=== PATIENT | female | born 1990 | race African-American/Black ===

== ENCOUNTER 2018-08-05 23:03 | Inpatient (IN) ==
[2018-08-06] MEDS ORDERED: ONDANSETRON 4 MG/2 ML VIAL ONE ×2 (02:30→04:43)
[2018-08-06 02:36] LABS: Basophils % 0.1 % (0.0-0.8); Eosinophils % 0.1 % (0.00-10.9); Hematocrit 40.1 VOL% (35.7-47.0); Hemoglobin 13.5 GM/DL (12.0-16.0); Immature Granulocytes % 0.3 %; Immature Granulocytes Absolute 0.04 #; Lymphocytes # 0.9 10*3/uL (1.4-4.0); Lymphocytes % 6.3 % (21.3-54.2); Mean Corpuscular HGB Conc 33.7 GM/DL (32-36); Mean Corpuscular Hemoglobin 28 PG (27-34); Mean Corpuscular Volume 81.8 FL (87-102); Mean Platelet Volume 10.7 FL (9.6-12.0); Monocytes # 0.5 10*3/uL (0.11-0.8); Monocytes % 3.6 % (1.7-12.7); Neutrophils # 12.2 10*3/uL (1.4-7.4); Neutrophils % 89.6 % (38.7-73.9); Platelet Count 256 T/CUMM (130-400); Red Cell Distribution Width 13.3 % (9.3-17.3); White Blood Count 13.6 T/CUMM (4-12)
[2018-08-06 02:44] LABS: PT Patient Result 10.4 SECS; Partial Thromboplastin Time 24.4 SECS (0-40)
[2018-08-06 03:03] LABS: Albumin 3.4 G/DL (3.4-5.0); Calcium 8.8 MG/DL (8.5-10.1); Osmolality,Calculated 285.1 MOS/KG (273-304); Potassium 4.1 MMOL/L (3.5-5.1); Total Protein 8.2 G/DL (6.4-8.3)
[2018-08-06 03:45] LABS: Apearance,Urine Slightly Hazy (Clear); Bacteria,Urine Occasional /HPF (Few); Bilirubin,Urine Negative (Negative); Blood, Urine Large mg/dL (Negative); Glucose,Urine (UA) Negative (Negative); Hyaline Casts,Urine 3 /LPF (0-3); Ketones,Urine Negative (Negative); Mucus,Urine Occasional /LPF (Occasional); Nitrite,Urine Negative (Negative); Protein,Urine 30 MG/DL; RBC,Urine 10 /HPF (0-4); Squamous Epithelial Cell,Urine Occasional /HPF (0-10); Urine Specific Gravity 1.011 (1.001-1.035); WBC,Urine 9 /HPF (0-6)
[2018-08-06 03:46] LABS: Urine Color Amber (Yellow)
[2018-08-06] MEDS ORDERED: MORPHINE 4 MG/1 ML VIAL IV STA (04:49)
[2018-08-06] MEDS ORDERED: MORPHINE 4 MG/1 ML VIAL ONE (04:50)
[2018-08-06] MEDS ORDERED: SODIUM CHLORIDE 0.9% 1,000 ML IV STA ×2 (05:19→05:20)
[2018-08-06] MEDS ORDERED: ACETAMINOPHEN 325 MG TABLET PO PRN (05:33)
[2018-08-06] MEDS ORDERED: NICOTINE 21 MG/24 HR PATCH TRANSDERM PRN (05:33)
[2018-08-06] MEDS ORDERED: PROMETHAZINE 25 MG/1 ML VIAL IM PRN (05:33)
[2018-08-06] MEDS ORDERED: MORPHINE 4 MG/1 ML VIAL IV PRN ×2 (05:33→08:32)
[2018-08-06] MEDS ORDERED: diphenhydrAMINE CAP 25 MG CAPSULE PO PRN (05:33)
[2018-08-06 06:09] LABS: Risk Ratio 5.06; VLDL CHOLESTEROL 11.6 MG/DL
[2018-08-06 06:17] LABS: Hepatitis A Ab IgM Quant < 0.02 Index; Hepatitis A Ab IgM Result Negative (Negative); Hepatitis B Core IgM Quant 0.14 Index; Hepatitis B Core IgM Result Negative (Negative); Hepatitis B Surface Ag Quant < 0.10 Index; Hepatitis B Surface Ag Result Negative (Negative); Hepatitis C Virus Ab Quant 0.13 Index; Hepatitis C Virus Ab Result Negative (Negative)
[2018-08-06] MEDS ORDERED: HYDROmorphone 2 MG/1 ML VIAL IV PRN ×3 (07:03→08:32)
[2018-08-06] MEDS ORDERED: ONDANSETRON 4 MG/2 ML VIAL IV ONE (07:58)
[2018-08-06] MEDS ORDERED: PROMETHAZINE 25 MG/1 ML VIAL IV SCH (08:30)
[2018-08-06] MEDS: HEPARIN 5,000 UNIT/1 ML VIAL SUBCUT SCH ×2 (09:14→17:16)
[2018-08-06] MEDS: PANTOPRAZOLE 40 MG VIAL IV SCH ×2 (09:14→20:46)
[2018-08-06] MEDS: cefTRIAXone 1,000 MG in SYRINGE 1 EACH IV SCH (09:19)
[2018-08-06] MEDS ORDERED: PROMETHAZINE INJ 25 MG in SODIUM CHLORIDE 0.9% 50 ML IV SCH (10:00)
[2018-08-06] MEDS: SODIUM CHLORIDE 0.9% 1,000 ML IV SCH ×2 (11:35→15:55)
[2018-08-06] MEDS: ONDANSETRON 4 MG/2 ML VIAL IV PRN ×3 (12:37→22:45)
[2018-08-06 15:29] LABS: Barbiturates Screen,Urine Negative (Negative); Benzodiazepines Screen,Urine Negative (Negative); Cannabinoid Screen,Urine Negative (Negative); Opiate Screen,Urine Positive (Negative); Phencyclidine Screen,Urine Negative (Negative)
[2018-08-06] MEDS ORDERED: LACTATED RINGERS 2,000 ML IV ONE (15:33)
[2018-08-06] MEDS: HYDROmorphone 2 MG/1 ML VIAL IV PRN ×2 (16:32→22:45)
[2018-08-06] MEDS: LACTATED RINGERS 1,000 ML IV SCH ×2 (17:46→22:01)
[2018-08-06 17:48] LABS: Apearance,Urine CLEAR (Clear); Bilirubin,Urine Negative (Negative); Blood, Urine Small mg/dL (Negative); Glucose,Urine (UA) Negative (Negative); Ketones,Urine 5 mg/dL (Negative); Mucus,Urine Occasional /LPF (Occasional); Nitrite,Urine Negative (Negative); Protein,Urine Negative; RBC,Urine 1 /HPF (0-4); Squamous Epithelial Cell,Urine Occasional /HPF (0-10); Urine Color Yellow (Yellow); Urine Specific Gravity 1.012 (1.001-1.035); Urine Urobilinogen < 2.0 EU/DL (0.2-1.0); WBC,Urine 4 /HPF (0-6)
[2018-08-07] MEDS: HEPARIN 5,000 UNIT/1 ML VIAL SUBCUT SCH ×3 (00:51→19:45)
[2018-08-07] MEDS: LACTATED RINGERS 1,000 ML IV SCH ×7 (02:49→23:19)
[2018-08-07] MEDS: ONDANSETRON 4 MG/2 ML VIAL IV PRN ×2 (03:13→14:26)
[2018-08-07] MEDS: HYDROmorphone 2 MG/1 ML VIAL IV PRN ×5 (03:17→22:19)
[2018-08-07 04:24] LABS: Basophils % 0.1 % (0.0-0.8); Hematocrit 40.6 VOL% (35.7-47.0); Hemoglobin 13.1 GM/DL (12.0-16.0); Immature Granulocytes % 0.6 %; Immature Granulocytes Absolute 0.13 #; Lymphocytes # 0.6 10*3/uL (1.4-4.0); Lymphocytes % 2.5 % (21.3-54.2); Mean Corpuscular HGB Conc 32.3 GM/DL (32-36); Mean Corpuscular Hemoglobin 27 PG (27-34); Mean Corpuscular Volume 82.5 FL (87-102); Mean Platelet Volume 11.1 FL (9.6-12.0); Monocytes # 1.2 10*3/uL (0.11-0.8); Monocytes % 4.9 % (1.7-12.7); Neutrophils # 21.6 10*3/uL (1.4-7.4); Neutrophils % 91.9 % (38.7-73.9); Platelet Count 249 T/CUMM (130-400); Red Blood Count 4.92 MC/CUMM (3.8-5.5); Red Cell Distribution Width 13.6 % (9.3-17.3); White Blood Count 23.5 T/CUMM (4-12)
[2018-08-07 04:43] LABS: Ferritin 66.2 ng/ml (8-252)
[2018-08-07 04:45] LABS: Albumin 2.6 G/DL (3.4-5.0); Bilirubin,Total 0.6 MG/DL (0.2-1.0); Calcium 7.7 MG/DL (8.5-10.1); Osmolality,Calculated 285.8 MOS/KG (273-304); Potassium 3.1 MMOL/L (3.5-5.1); Total Protein 6.9 G/DL (6.4-8.3)
[2018-08-07 05:43] LABS: Band Neutrophils 2 % (0-10); Lymphocytes 2 % (20-55); Platelet Estimate Normal; Segmented Neutrophils 93 % (50-85); Total Cells Counted 100
[2018-08-07] MEDS: PANTOPRAZOLE 40 MG VIAL IV SCH (09:45)
[2018-08-07] MEDS: cefTRIAXone 1,000 MG in SYRINGE 1 EACH IV SCH (09:49)
[2018-08-07] MEDS: POLYETHYLENE GLYCOL POWDER 17 GM PACK PO SCH ×2 (09:55→09:57)
[2018-08-07] MEDS ORDERED: cefOXitin 2,000 MG in SYRINGE 1 EACH IV ONE (10:53)
[2018-08-07] MEDS: POTASSIUM CHLORIDE 20 MEQ TABLET PO PRN ×4 (13:37→22:55)
[2018-08-07] MEDS: NYSTATIN POWDER 15 GM BOTTLE TOP SCH ×2 (17:55→20:18)
[2018-08-07] MEDS: hydrALAZINE 20 MG/1 ML VIAL IV PRN (20:30)
[2018-08-08] MEDS: HEPARIN 5,000 UNIT/1 ML VIAL SUBCUT SCH ×3 (00:40→16:19)
[2018-08-08] MEDS ORDERED: SODIUM CHLORIDE 0.9% 500 ML IV ONE (02:25)
[2018-08-08] MEDS: LACTATED RINGERS 1,000 ML IV SCH ×6 (03:42→22:53)
[2018-08-08 05:39] LABS: Basophils % 0.1 % (0.0-0.8); Hematocrit 38.1 VOL% (35.7-47.0); Hemoglobin 12.6 GM/DL (12.0-16.0); Immature Granulocytes % 0.9 %; Immature Granulocytes Absolute 0.23 #; Lymphocytes # 0.7 10*3/uL (1.4-4.0); Lymphocytes % 2.8 % (21.3-54.2); Mean Corpuscular HGB Conc 33.1 GM/DL (32-36); Mean Corpuscular Hemoglobin 27 PG (27-34); Mean Corpuscular Volume 81.2 FL (87-102); Mean Platelet Volume 11.1 FL (9.6-12.0); Monocytes # 1.4 10*3/uL (0.11-0.8); Monocytes % 5.1 % (1.7-12.7); Neutrophils # 24.5 10*3/uL (1.4-7.4); Neutrophils % 91.1 % (38.7-73.9); Platelet Count 223 T/CUMM (130-400); Red Blood Count 4.69 MC/CUMM (3.8-5.5); Red Cell Distribution Width 13.8 % (9.3-17.3); White Blood Count 26.9 T/CUMM (4-12)
[2018-08-08 06:04] LABS: Band Neutrophils 12 % (0-10); Lymphocytes 4 % (20-55); Platelet Estimate Normal; Segmented Neutrophils 83 % (50-85); Total Cells Counted 100
[2018-08-08 06:12] LABS: Albumin 2.2 G/DL (3.4-5.0); Bilirubin,Total 1.1 MG/DL (0.2-1.0); Calcium 7.5 MG/DL (8.5-10.1); Osmolality,Calculated 270.8 MOS/KG (273-304); Potassium 3.2 MMOL/L (3.5-5.1); Total Protein 6.4 G/DL (6.4-8.3)
[2018-08-08] MEDS ORDERED: LIDOCAINE 1%/EPI INJ 20 ML VIAL ONE (06:27)
[2018-08-08] MEDS ORDERED: TISSUE ADHESIVE 1 EACH APPLICATOR TOP ONE (06:27)
[2018-08-08] MEDS: HYDROmorphone 2 MG/1 ML VIAL IV PRN ×2 (06:53→20:12)
[2018-08-08] MEDS ORDERED: cefOXitin 2,000 MG in SYRINGE 1 EACH IV ONE (07:00)
[2018-08-08] MEDS: cefTRIAXone 1,000 MG in SYRINGE 1 EACH IV SCH (09:40)
[2018-08-08] MEDS: PANTOPRAZOLE 40 MG TABLET PO SCH (09:40)
[2018-08-08] MEDS: NYSTATIN POWDER 15 GM BOTTLE TOP SCH ×3 (09:44→20:14)
[2018-08-08] MEDS: POLYETHYLENE GLYCOL POWDER 17 GM PACK PO SCH ×2 (09:44→16:16)
[2018-08-08] MEDS: POTASSIUM CHLORIDE 20 MEQ TABLET PO PRN ×3 (20:02→23:56)
[2018-08-08] MEDS: ONDANSETRON 4 MG/2 ML VIAL IV PRN (20:13)
[2018-08-09] MEDS: HEPARIN 5,000 UNIT/1 ML VIAL SUBCUT SCH ×3 (01:21→16:36)
[2018-08-09] MEDS: ONDANSETRON 4 MG/2 ML VIAL IV PRN ×2 (02:58→10:53)
[2018-08-09] MEDS: HYDROmorphone 2 MG/1 ML VIAL IV PRN ×3 (02:59→23:52)
[2018-08-09] MEDS: LACTATED RINGERS 1,000 ML IV SCH ×6 (02:59→19:19)
[2018-08-09 06:39] LABS: Albumin 1.7 G/DL (3.4-5.0); Bilirubin,Total 0.8 MG/DL (0.2-1.0); Calcium 7.2 MG/DL (8.5-10.1); Osmolality,Calculated 271.5 MOS/KG (273-304); Potassium 4.1 MMOL/L (3.5-5.1); Total Protein 5.5 G/DL (6.4-8.3)
[2018-08-09 08:04] LABS: Basophils % 0.1 % (0.0-0.8); Hematocrit 34.8 VOL% (35.7-47.0); Hemoglobin 11.8 GM/DL (12.0-16.0); Immature Granulocytes % 0.7 %; Immature Granulocytes Absolute 0.14 #; Lymphocytes # 0.7 10*3/uL (1.4-4.0); Lymphocytes % 3.4 % (21.3-54.2); Mean Corpuscular HGB Conc 33.9 GM/DL (32-36); Mean Corpuscular Hemoglobin 27 PG (27-34); Mean Corpuscular Volume 80.9 FL (87-102); Mean Platelet Volume 11.4 FL (9.6-12.0); Monocytes # 1.1 10*3/uL (0.11-0.8); Monocytes % 5.5 % (1.7-12.7); Neutrophils # 18.1 10*3/uL (1.4-7.4); Neutrophils % 90.3 % (38.7-73.9); Platelet Count 193 T/CUMM (130-400); Red Cell Distribution Width 13.4 % (9.3-17.3)
[2018-08-09 08:29] LABS: Band Neutrophils 3 % (0-10); Hypochromasia 1+; Lymphocytes 4 % (20-55); Platelet Estimate Adequate; Segmented Neutrophils 89 % (50-85); Total Cells Counted 100
[2018-08-09] MEDS: PANTOPRAZOLE 40 MG TABLET PO SCH (09:59)
[2018-08-09] MEDS: NYSTATIN POWDER 15 GM BOTTLE TOP SCH ×3 (09:59→20:36)
[2018-08-09] MEDS: POLYETHYLENE GLYCOL POWDER 17 GM PACK PO SCH (09:59)
[2018-08-09] MEDS: cefTRIAXone 1,000 MG in SYRINGE 1 EACH IV SCH (09:59)
[2018-08-09 13:01] LABS: Smooth Muscle Antibody Negative (Negative)
[2018-08-09] MEDS: hydrALAZINE 20 MG/1 ML VIAL IV PRN (23:46)
[2018-08-10] MEDS: LACTATED RINGERS 1,000 ML IV SCH ×7 (01:15→22:41)
[2018-08-10] MEDS: HEPARIN 5,000 UNIT/1 ML VIAL SUBCUT SCH ×3 (01:16→18:06)
[2018-08-10 08:30] LABS: Basophils % 0.1 % (0.0-0.8); Eosinophils % 0.3 % (0.00-10.9); Hemoglobin 10.8 GM/DL (12.0-16.0); Immature Granulocytes % 1.1 %; Immature Granulocytes Absolute 0.17 #; Lymphocytes # 0.9 10*3/uL (1.4-4.0); Lymphocytes % 5.6 % (21.3-54.2); Mean Corpuscular HGB Conc 33.8 GM/DL (32-36); Mean Corpuscular Hemoglobin 27 PG (27-34); Mean Corpuscular Volume 80.8 FL (87-102); Mean Platelet Volume 10.8 FL (9.6-12.0); Monocytes % 6.8 % (1.7-12.7); Neutrophils # 13.1 10*3/uL (1.4-7.4); Neutrophils % 86.1 % (38.7-73.9); Platelet Count 214 T/CUMM (130-400); Red Blood Count 3.96 MC/CUMM (3.8-5.5); Red Cell Distribution Width 13.3 % (9.3-17.3); White Blood Count 15.2 T/CUMM (4-12)
[2018-08-10 08:58] LABS: Bilirubin,Total 0.8 MG/DL (0.2-1.0); Calcium 7.9 MG/DL (8.5-10.1); Osmolality,Calculated 276.3 MOS/KG (273-304); Potassium 2.8 MMOL/L (3.5-5.1); Total Protein 6.7 G/DL (6.4-8.3)
[2018-08-10] MEDS: HYDROmorphone 2 MG/1 ML VIAL IV PRN ×3 (11:00→22:23)
[2018-08-10] MEDS: cefTRIAXone 1,000 MG in SYRINGE 1 EACH IV SCH (11:47)
[2018-08-10] MEDS: PANTOPRAZOLE 40 MG TABLET PO SCH (11:48)
[2018-08-10] MEDS: POLYETHYLENE GLYCOL POWDER 17 GM PACK PO SCH (11:49)
[2018-08-10] MEDS: NYSTATIN POWDER 15 GM BOTTLE TOP SCH ×3 (11:49→21:21)
[2018-08-10] MEDS: POTASSIUM CHLORIDE 20 MEQ TABLET PO PRN ×2 (19:59→22:25)
[2018-08-11] MEDS: HEPARIN 5,000 UNIT/1 ML VIAL SUBCUT SCH ×3 (00:51→17:25)
[2018-08-11] MEDS: POTASSIUM CHLORIDE 20 MEQ TABLET PO PRN ×2 (00:51→06:05)
[2018-08-11] MEDS: ONDANSETRON 4 MG/2 ML VIAL IV PRN (00:55)
[2018-08-11] MEDS: HYDROmorphone 2 MG/1 ML VIAL IV PRN ×2 (01:35→08:47)
[2018-08-11] MEDS: LACTATED RINGERS 1,000 ML IV SCH ×3 (02:45→09:40)
[2018-08-11] MEDS: hydrALAZINE 20 MG/1 ML VIAL IV PRN (04:22)
[2018-08-11 05:11] LABS: Albumin 2.1 G/DL (3.4-5.0); Osmolality,Calculated 276.3 MOS/KG (273-304); Total Protein 6.6 G/DL (6.4-8.3)
[2018-08-11 05:13] LABS: Basophils % 0.2 % (0.0-0.8); Eosinophils # 0.1 10*3/uL (0.0-0.87); Eosinophils % 0.7 % (0.00-10.9); Hematocrit 31.4 VOL% (35.7-47.0); Hemoglobin 10.5 GM/DL (12.0-16.0); Immature Granulocytes % 1.7 %; Immature Granulocytes Absolute 0.23 #; Lymphocytes # 1.1 10*3/uL (1.4-4.0); Lymphocytes % 8.4 % (21.3-54.2); Mean Corpuscular HGB Conc 33.4 GM/DL (32-36); Mean Corpuscular Hemoglobin 27 PG (27-34); Mean Corpuscular Volume 81.1 FL (87-102); Mean Platelet Volume 10.6 FL (9.6-12.0); Monocytes # 1.1 10*3/uL (0.11-0.8); Monocytes % 7.7 % (1.7-12.7); Neutrophils # 11.1 10*3/uL (1.4-7.4); Neutrophils % 81.3 % (38.7-73.9); Platelet Count 212 T/CUMM (130-400); Red Blood Count 3.87 MC/CUMM (3.8-5.5); Red Cell Distribution Width 13.6 % (9.3-17.3); White Blood Count 13.6 T/CUMM (4-12)
[2018-08-11] MEDS: POTASSIUM CHLORIDE 20 MEQ TABLET PO SCH ×4 (08:46→20:14)
[2018-08-11] MEDS: NYSTATIN POWDER 15 GM BOTTLE TOP SCH ×3 (08:47→20:14)
[2018-08-11] MEDS: POLYETHYLENE GLYCOL POWDER 17 GM PACK PO SCH (08:47)
[2018-08-11] MEDS: PANTOPRAZOLE 40 MG TABLET PO SCH (08:47)
[2018-08-11] MEDS: cefTRIAXone 1,000 MG in SYRINGE 1 EACH IV SCH (08:47)
[2018-08-11] MEDS ORDERED: cloNIDine 0.3 MG/24 HR PATCH TRANSDERM SCH (09:00)
[2018-08-11] MEDS ORDERED: DEXTROSE 50% 25 GM/50 ML VIAL IV PRN (09:10)
[2018-08-11] MEDS ORDERED: GLUCAGON 1 MG VIAL IM PRN (09:10)
[2018-08-11] MEDS ORDERED: FAT EMULSION 20% 250 ML IV SCH (14:00)
[2018-08-11] MEDS ORDERED: DEXTROSE 10% 1,000 ML IV PRN (17:00)
[2018-08-11] MEDS ORDERED: AMINO ACIDS/DEXT/LYTES 5-15% 2,000 ML IV SCH (17:00)
[2018-08-11] MEDS: NIFEdipine 10 MG CAPSULE PO PRN ×2 (20:14→23:58)
[2018-08-12] MEDS: HEPARIN 5,000 UNIT/1 ML VIAL SUBCUT SCH ×3 (02:50→16:48)
[2018-08-12] MEDS: LACTATED RINGERS 1,000 ML IV SCH ×2 (03:28→17:06)
[2018-08-12] MEDS: HYDROmorphone 2 MG/1 ML VIAL IV PRN ×2 (05:56→09:20)
[2018-08-12 05:57] LABS: Basophils % 0.3 % (0.0-0.8); Eosinophils # 0.1 10*3/uL (0.0-0.87); Eosinophils % 1.1 % (0.00-10.9); Hematocrit 29.7 VOL% (35.7-47.0); Hemoglobin 9.8 GM/DL (12.0-16.0); Immature Granulocytes % 3.8 %; Immature Granulocytes Absolute 0.44 #; Lymphocytes # 1.2 10*3/uL (1.4-4.0); Lymphocytes % 10.8 % (21.3-54.2); Mean Corpuscular Hemoglobin 27 PG (27-34); Mean Corpuscular Volume 81.1 FL (87-102); Mean Platelet Volume 10.8 FL (9.6-12.0); Monocytes # 0.8 10*3/uL (0.11-0.8); Monocytes % 7.2 % (1.7-12.7); NRBC # 0.02 10*3/uL; Neutrophils # 8.8 10*3/uL (1.4-7.4); Neutrophils % 76.8 % (38.7-73.9); Platelet Count 229 T/CUMM (130-400); Red Blood Count 3.66 MC/CUMM (3.8-5.5); Red Cell Distribution Width 13.9 % (9.3-17.3); White Blood Count 11.5 T/CUMM (4-12)
[2018-08-12 06:28] LABS: Bilirubin,Total 1.1 MG/DL (0.2-1.0); Calcium 8.1 MG/DL (8.5-10.1); Potassium 3.5 MMOL/L (3.5-5.1); Total Protein 6.4 G/DL (6.4-8.3)
[2018-08-12] MEDS: cefTRIAXone 1,000 MG in SYRINGE 1 EACH IV SCH (09:20)
[2018-08-12] MEDS: POLYETHYLENE GLYCOL POWDER 17 GM PACK PO SCH (09:21)
[2018-08-12] MEDS: PANTOPRAZOLE 40 MG TABLET PO SCH (09:22)
[2018-08-12] MEDS: NYSTATIN POWDER 15 GM BOTTLE TOP SCH ×3 (09:22→20:27)
[2018-08-12] MEDS: NIFEdipine 10 MG CAPSULE PO PRN (20:27)
[2018-08-13] MEDS: HEPARIN 5,000 UNIT/1 ML VIAL SUBCUT SCH ×3 (04:25→17:39)
[2018-08-13] MEDS: LACTATED RINGERS 1,000 ML IV SCH ×2 (06:12→16:01)
[2018-08-13] MEDS: cefTRIAXone 1,000 MG in SYRINGE 1 EACH IV SCH (08:39)
[2018-08-13] MEDS: POLYETHYLENE GLYCOL POWDER 17 GM PACK PO SCH (09:32)
[2018-08-13] MEDS: NYSTATIN POWDER 15 GM BOTTLE TOP SCH ×3 (09:33→20:41)
[2018-08-13] MEDS: PANTOPRAZOLE 40 MG TABLET PO SCH (09:33)
[2018-08-13] MEDS ORDERED: BUPIVACAINE 0.5% /EPI 10 ML VIAL ONE (11:45)
[2018-08-13] MEDS ORDERED: fentaNYL 100 MCG/2 ML VIAL ONE (12:09)
[2018-08-13] MEDS ORDERED: PROPOFOL 200 MG/20 ML VIAL IV ONE (12:18)
[2018-08-13] MEDS ORDERED: ONDANSETRON 4 MG/2 ML VIAL ONE (12:18)
[2018-08-13] MEDS ORDERED: GLYCOPYRROLATE 0.4 MG/2 ML VIAL ONE (12:18)
[2018-08-13] MEDS ORDERED: SEVOFLURANE 1 UNIT/15 MINUTE INH ONE (12:18)
[2018-08-13] MEDS ORDERED: KETOROLAC 30 MG/1 ML VIAL ONE (12:18)
[2018-08-13] MEDS ORDERED: MIDAZOLAM 2 MG/2 ML VIAL ONE (12:19)
[2018-08-13] MEDS ORDERED: SUCCINYLCHOLINE 200 MG/10 ML VIAL ONE (12:19)
[2018-08-13] MEDS ORDERED: NEOSTIGMINE 10 MG/10 ML VIAL ONE (12:19)
[2018-08-13] MEDS ORDERED: ROCURONIUM 100 MG/10 ML VIAL IV ONE (12:19)
[2018-08-13] MEDS ORDERED: ACETAMINOPHEN 1,000 MG/100 ML VIAL IV ONE (12:19)
[2018-08-13] MEDS: HYDROmorphone 2 MG/1 ML VIAL IV PRN ×2 (13:12→20:35)
[2018-08-13] MEDS: hydrALAZINE 25 MG TABLET PO SCH ×2 (15:36→20:39)
[2018-08-13] MEDS: CARVEDILOL 3.125 MG TABLET PO SCH (17:38)
[2018-08-14] MEDS: HEPARIN 5,000 UNIT/1 ML VIAL SUBCUT SCH ×3 (01:04→20:17)
[2018-08-14] MEDS: HYDROmorphone 2 MG/1 ML VIAL IV PRN ×4 (02:44→20:47)
[2018-08-14] MEDS: LACTATED RINGERS 1,000 ML IV SCH ×2 (03:29→20:16)
[2018-08-14 05:29] LABS: Basophils % 0.3 % (0.0-0.8); Eosinophils # 0.1 10*3/uL (0.0-0.87); Eosinophils % 0.5 % (0.00-10.9); Hemoglobin 10.2 GM/DL (12.0-16.0); Immature Granulocytes % 4.2 %; Immature Granulocytes Absolute 0.56 #; Lymphocytes # 1.3 10*3/uL (1.4-4.0); Lymphocytes % 9.7 % (21.3-54.2); Mean Corpuscular HGB Conc 32.9 GM/DL (32-36); Mean Corpuscular Hemoglobin 27 PG (27-34); Mean Corpuscular Volume 81.2 FL (87-102); Mean Platelet Volume 10.8 FL (9.6-12.0); Monocytes # 1.1 10*3/uL (0.11-0.8); Monocytes % 8.3 % (1.7-12.7); Neutrophils # 10.3 10*3/uL (1.4-7.4); Platelet Count 258 T/CUMM (130-400); Red Blood Count 3.82 MC/CUMM (3.8-5.5); Red Cell Distribution Width 13.7 % (9.3-17.3); White Blood Count 13.3 T/CUMM (4-12)
[2018-08-14 05:54] LABS: Band Neutrophils 1 % (0-10); Hypochromasia 1+; Lymphocytes 9 % (20-55); Myelocytes 1 %; Segmented Neutrophils 83 % (50-85); Total Cells Counted 100
[2018-08-14 05:55] LABS: Microcytosis 1+; Target Cells Slight
[2018-08-14 06:06] LABS: Bilirubin,Total 0.7 MG/DL (0.2-1.0); Osmolality,Calculated 274.4 MOS/KG (273-304); Potassium 3.5 MMOL/L (3.5-5.1); Total Protein 7.1 G/DL (6.4-8.3)
[2018-08-14] MEDS: cefTRIAXone 1,000 MG in SYRINGE 1 EACH IV SCH (08:19)
[2018-08-14] MEDS: POTASSIUM CHLORIDE 20 MEQ TABLET PO PRN (08:20)
[2018-08-14] MEDS: PANTOPRAZOLE 40 MG TABLET PO SCH (08:20)
[2018-08-14] MEDS: hydrALAZINE 25 MG TABLET PO SCH ×3 (08:20→20:46)
[2018-08-14] MEDS: CARVEDILOL 3.125 MG TABLET PO SCH ×2 (08:22→20:17)
[2018-08-14] MEDS: POLYETHYLENE GLYCOL POWDER 17 GM PACK PO SCH (09:51)
[2018-08-14] MEDS: NYSTATIN POWDER 15 GM BOTTLE TOP SCH ×3 (09:51→20:53)
[2018-08-15] MEDS: HYDROmorphone 2 MG/1 ML VIAL IV PRN ×4 (01:35→20:54)
[2018-08-15] MEDS: HEPARIN 5,000 UNIT/1 ML VIAL SUBCUT SCH ×2 (02:25→10:20)
[2018-08-15] MEDS: LACTATED RINGERS 1,000 ML IV SCH (05:10)
[2018-08-15 05:32] LABS: Basophils # 0.1 10*3/uL (0.0-0.2); Basophils % 0.3 % (0.0-0.8); Eosinophils # 0.1 10*3/uL (0.0-0.87); Eosinophils % 0.3 % (0.00-10.9); Hematocrit 30.8 VOL% (35.7-47.0); Hemoglobin 10.3 GM/DL (12.0-16.0); Immature Granulocytes Absolute 0.63 #; Lymphocytes # 1.6 10*3/uL (1.4-4.0); Lymphocytes % 10.3 % (21.3-54.2); Mean Corpuscular HGB Conc 33.4 GM/DL (32-36); Mean Corpuscular Hemoglobin 27 PG (27-34); Mean Corpuscular Volume 80.2 FL (87-102); Mean Platelet Volume 10.7 FL (9.6-12.0); Monocytes # 1.4 10*3/uL (0.11-0.8); Monocytes % 8.9 % (1.7-12.7); Neutrophils # 11.9 10*3/uL (1.4-7.4); Neutrophils % 76.2 % (38.7-73.9); Platelet Count 255 T/CUMM (130-400); Red Blood Count 3.84 MC/CUMM (3.8-5.5); Red Cell Distribution Width 13.9 % (9.3-17.3); White Blood Count 15.6 T/CUMM (4-12)
[2018-08-15 05:46] LABS: Albumin 2.1 G/DL (3.4-5.0); Bilirubin,Total 1.2 MG/DL (0.2-1.0); Calcium 8.3 MG/DL (8.5-10.1); Osmolality,Calculated 273.5 MOS/KG (273-304); Potassium 3.4 MMOL/L (3.5-5.1); Total Protein 7.2 G/DL (6.4-8.3)
[2018-08-15 05:54] LABS: Eosinophils 1 % (0-10); Lymphocytes 7 % (20-55); Platelet Estimate Normal; Poikilocytosis Slight; Polychromasia Few; Segmented Neutrophils 90 % (50-85); Total Cells Counted 100
[2018-08-15] MEDS: POLYETHYLENE GLYCOL POWDER 17 GM PACK PO SCH (09:00)
[2018-08-15] MEDS: ONDANSETRON 4 MG/2 ML VIAL IV PRN ×2 (09:06→19:33)
[2018-08-15] MEDS: cefTRIAXone 1,000 MG in SYRINGE 1 EACH IV SCH (09:10)
[2018-08-15] MEDS: CARVEDILOL 3.125 MG TABLET PO SCH ×2 (10:07→17:23)
[2018-08-15] MEDS: hydrALAZINE 25 MG TABLET PO SCH ×3 (10:08→20:53)
[2018-08-15] MEDS: PANTOPRAZOLE 40 MG TABLET PO SCH (10:08)
[2018-08-15] MEDS: SIMETHICONE CHEW 125 MG TABLET PO PRN ×2 (10:13→18:44)
[2018-08-15] MEDS: NYSTATIN POWDER 15 GM BOTTLE TOP SCH ×3 (10:20→20:54)
[2018-08-15] MEDS: PIPERACILLIN/TAZOBACTAM 3,375 MG in SODIUM CHLORIDE 0.9% 100 ML IV SCH ×2 (12:40→20:58)
[2018-08-15] MEDS ORDERED: LACTATED RINGERS 2,000 ML IV ONE (13:57)
[2018-08-15 16:54] LABS: VBG HCO3 25.4 MEQ/L (24-28); VBG Oxygen Saturation 64.8 %; VBG PCO2 40.5 MMHG (41-51); VBG PH 7.424; VBG PO2 36.9 MMHG (17-40)
[2018-08-15] MEDS: ENOXAPARIN 150 MG/ML SYRINGE SUBCUT SCH (17:24)
[2018-08-15 20:41] LABS: Apearance,Urine CLEAR (Clear); Bilirubin,Urine Negative (Negative); Blood, Urine Negative (Negative); Glucose,Urine (UA) Negative (Negative); Ketones,Urine Negative (Negative); Nitrite,Urine Negative (Negative); Protein,Urine Negative; RBC,Urine <1 /HPF (0-4); Urine Color Yellow (Yellow); Urine Specific Gravity 1.016 (1.001-1.035)
[2018-08-16] MEDS: PIPERACILLIN/TAZOBACTAM 3,375 MG in SODIUM CHLORIDE 0.9% 100 ML IV SCH ×3 (03:55→19:48)
[2018-08-16 05:51] LABS: Basophils % 0.2 % (0.0-0.8); Eosinophils % 0.2 % (0.00-10.9); Hematocrit 30.7 VOL% (35.7-47.0); Hemoglobin 10.3 GM/DL (12.0-16.0); Lymphocytes # 1.6 10*3/uL (1.4-4.0); Lymphocytes % 9.6 % (21.3-54.2); Mean Corpuscular HGB Conc 33.6 GM/DL (32-36); Mean Corpuscular Hemoglobin 27 PG (27-34); Mean Platelet Volume 10.7 FL (9.6-12.0); Monocytes # 1.2 10*3/uL (0.11-0.8); Monocytes % 7.5 % (1.7-12.7); Neutrophils # 13.1 10*3/uL (1.4-7.4); Neutrophils % 79.5 % (38.7-73.9); Platelet Count 278 T/CUMM (130-400); Red Blood Count 3.79 MC/CUMM (3.8-5.5); White Blood Count 16.4 T/CUMM (4-12)
[2018-08-16] MEDS: ENOXAPARIN 150 MG/ML SYRINGE SUBCUT SCH (06:02)
[2018-08-16 06:11] LABS: Albumin 2.2 G/DL (3.4-5.0); Bilirubin,Total 0.9 MG/DL (0.2-1.0); Calcium 8.7 MG/DL (8.5-10.1); Osmolality,Calculated 278.1 MOS/KG (273-304); Potassium 3.4 MMOL/L (3.5-5.1); Total Protein 7.5 G/DL (6.4-8.3)
[2018-08-16] MEDS: HYDROmorphone 2 MG/1 ML VIAL IV PRN ×3 (06:23→23:26)
[2018-08-16 06:43] LABS: Hypochromasia 1+; Microcytosis Slight; Platelet Estimate Adequate
[2018-08-16] MEDS: POTASSIUM CHLORIDE RIDER 10 MEQ in PREMIX 1 EACH IV PRN ×3 (07:22→09:30)
[2018-08-16] MEDS: PANTOPRAZOLE 40 MG TABLET PO SCH (09:31)
[2018-08-16] MEDS: CARVEDILOL 3.125 MG TABLET PO SCH (09:31)
[2018-08-16] MEDS: hydrALAZINE 25 MG TABLET PO SCH ×3 (09:31→19:59)
[2018-08-16] MEDS: POLYETHYLENE GLYCOL POWDER 17 GM PACK PO SCH (09:55)
[2018-08-16] MEDS: NYSTATIN POWDER 15 GM BOTTLE TOP SCH ×3 (09:55→20:00)
[2018-08-16] MEDS ORDERED: DEXTROSE 50% 25 GM/50 ML SYRINGE IV PRN (15:16)
[2018-08-16] MEDS ORDERED: GLUCAGON 1 MG VIAL IM PRN (15:16)
[2018-08-16] MEDS: CARVEDILOL 6.25 MG TABLET PO SCH (16:09)
[2018-08-16] MEDS: APIXABAN 5 MG TABLET PO SCH ×2 (16:09→19:59)
[2018-08-16] MEDS: FAT EMULSION 20% 250 ML IV SCH (16:25)
[2018-08-16] MEDS ORDERED: TRACE ELEMENTS (5) 1 ML, MULTIVITAMIN INJ 10 ML in AMINO ACIDS/DEXT/LYTES 5-15% 2,000 ML IV SCH (17:00)
[2018-08-16] MEDS ORDERED: DEXTROSE 10% 1,000 ML IV PRN (17:00)
[2018-08-16] MEDS: INSULIN REGULAR 100 UNIT/ML SUBCUT SCH (17:19)
[2018-08-17] MEDS: INSULIN REGULAR 100 UNIT/ML SUBCUT SCH ×4 (01:34→17:28)
[2018-08-17] MEDS: HYDROmorphone 2 MG/1 ML VIAL IV PRN ×3 (04:30→23:01)
[2018-08-17] MEDS: PIPERACILLIN/TAZOBACTAM 3,375 MG in SODIUM CHLORIDE 0.9% 100 ML IV SCH ×3 (04:30→18:41)
[2018-08-17 06:16] LABS: Basophils % 0.2 % (0.0-0.8); Eosinophils # 0.1 10*3/uL (0.0-0.87); Eosinophils % 0.3 % (0.00-10.9); Hematocrit 32.5 VOL% (35.7-47.0); Hemoglobin 10.6 GM/DL (12.0-16.0); Immature Granulocytes % 1.8 %; Immature Granulocytes Absolute 0.32 #; Lymphocytes % 11.4 % (21.3-54.2); Mean Corpuscular HGB Conc 32.6 GM/DL (32-36); Mean Corpuscular Hemoglobin 27 PG (27-34); Mean Corpuscular Volume 81.5 FL (87-102); Mean Platelet Volume 10.9 FL (9.6-12.0); Monocytes # 1.2 10*3/uL (0.11-0.8); Monocytes % 7.1 % (1.7-12.7); Neutrophils # 13.7 10*3/uL (1.4-7.4); Neutrophils % 79.2 % (38.7-73.9); Platelet Count 343 T/CUMM (130-400); Red Blood Count 3.99 MC/CUMM (3.8-5.5); White Blood Count 17.3 T/CUMM (4-12)
[2018-08-17 06:33] LABS: Albumin 2.3 G/DL (3.4-5.0); Bilirubin,Total 0.8 MG/DL (0.2-1.0); Calcium 8.7 MG/DL (8.5-10.1); Osmolality,Calculated 273.4 MOS/KG (273-304); Potassium 3.4 MMOL/L (3.5-5.1); Total Protein 8.1 G/DL (6.4-8.3)
[2018-08-17 06:34] LABS: Albumin 2.4 G/DL (3.4-5.0); Bilirubin,Direct 0.34 MG/DL (0.0-0.20); Bilirubin,Indirect 0.7 MG/DL (0.0-1.0); Prealbumin 7.7 MG/DL (20-40)
[2018-08-17 07:51] LABS: Anisocytosis Slight; Band Neutrophils 6 % (0-10); Lymphocytes 12 % (20-55); Platelet Estimate Normal; Segmented Neutrophils 74 % (50-85); Total Cells Counted 100
[2018-08-17] MEDS: POLYETHYLENE GLYCOL POWDER 17 GM PACK PO SCH (08:09)
[2018-08-17] MEDS: PANTOPRAZOLE 40 MG TABLET PO SCH (08:10)
[2018-08-17] MEDS: hydrALAZINE 25 MG TABLET PO SCH ×3 (08:10→20:47)
[2018-08-17] MEDS: CARVEDILOL 6.25 MG TABLET PO SCH (08:10)
[2018-08-17] MEDS: APIXABAN 5 MG TABLET PO SCH ×2 (08:10→20:46)
[2018-08-17] MEDS: NYSTATIN POWDER 15 GM BOTTLE TOP SCH ×3 (08:13→20:46)
[2018-08-17] MEDS: POTASSIUM CHLORIDE 20 MEQ TABLET PO PRN ×2 (09:41→23:01)
[2018-08-17] MEDS: FAT EMULSION 20% 250 ML IV SCH (13:42)
[2018-08-17] MEDS: CARVEDILOL 12.5 MG TABLET PO SCH (16:42)
[2018-08-17] MEDS ORDERED: TRACE ELEMENTS (5) 1 ML, MULTIVITAMIN INJ 10 ML in AMINO ACIDS/DEXT/LYTES 5-15% 2,000 ML IV SCH (17:00)
[2018-08-18] MEDS: PIPERACILLIN/TAZOBACTAM 3,375 MG in SODIUM CHLORIDE 0.9% 100 ML IV SCH ×3 (04:27→21:44)
[2018-08-18] MEDS: HYDROmorphone 2 MG/1 ML VIAL IV PRN ×3 (04:35→21:52)
[2018-08-18 05:00] LABS: Basophils % 0.3 % (0.0-0.8); Eosinophils % 0.2 % (0.00-10.9); Hematocrit 30.3 VOL% (35.7-47.0); Hemoglobin 10.1 GM/DL (12.0-16.0); Immature Granulocytes % 1.7 %; Immature Granulocytes Absolute 0.24 #; Lymphocytes # 1.5 10*3/uL (1.4-4.0); Lymphocytes % 10.8 % (21.3-54.2); Mean Corpuscular HGB Conc 33.3 GM/DL (32-36); Mean Corpuscular Hemoglobin 27 PG (27-34); Mean Corpuscular Volume 80.6 FL (87-102); Mean Platelet Volume 10.6 FL (9.6-12.0); Monocytes % 7.5 % (1.7-12.7); Neutrophils # 10.9 10*3/uL (1.4-7.4); Neutrophils % 79.5 % (38.7-73.9); Platelet Count 316 T/CUMM (130-400); Red Blood Count 3.76 MC/CUMM (3.8-5.5); Red Cell Distribution Width 13.9 % (9.3-17.3); White Blood Count 13.7 T/CUMM (4-12)
[2018-08-18] MEDS: INSULIN REGULAR 100 UNIT/ML SUBCUT SCH ×5 (05:03→23:20)
[2018-08-18 05:37] LABS: Albumin 2.4 G/DL (3.4-5.0); Bilirubin,Total 0.6 MG/DL (0.2-1.0); Calcium 8.7 MG/DL (8.5-10.1); Osmolality,Calculated 273.5 MOS/KG (273-304); Potassium 3.6 MMOL/L (3.5-5.1); Total Protein 7.6 G/DL (6.4-8.3)
[2018-08-18 05:42] LABS: Band Neutrophils 4 % (0-10); Eosinophils 2 % (0-10); Lymphocytes 10 % (20-55); Segmented Neutrophils 76 % (50-85); Total Cells Counted 100
[2018-08-18 05:43] LABS: Giant Platelets Few; Hypochromasia Slight; Platelet Estimate Normal
[2018-08-18] MEDS: POTASSIUM CHLORIDE RIDER 10 MEQ in PREMIX 1 EACH IV PRN ×2 (06:42→10:04)
[2018-08-18] MEDS: CARVEDILOL 12.5 MG TABLET PO SCH ×2 (10:05→17:53)
[2018-08-18] MEDS: hydrALAZINE 25 MG TABLET PO SCH ×3 (10:06→21:44)
[2018-08-18] MEDS: PANTOPRAZOLE 40 MG TABLET PO SCH (10:06)
[2018-08-18] MEDS: APIXABAN 5 MG TABLET PO SCH ×2 (10:06→21:45)
[2018-08-18] MEDS: NYSTATIN POWDER 15 GM BOTTLE TOP SCH ×3 (10:07→21:45)
[2018-08-18] MEDS: POLYETHYLENE GLYCOL POWDER 17 GM PACK PO SCH ×2 (10:08→19:05)
[2018-08-19] MEDS: HYDROmorphone 2 MG/1 ML VIAL IV PRN ×4 (04:03→22:32)
[2018-08-19 06:00] LABS: Basophils % 0.2 % (0.0-0.8); Eosinophils # 0.1 10*3/uL (0.0-0.87); Eosinophils % 0.6 % (0.00-10.9); Hematocrit 31.3 VOL% (35.7-47.0); Hemoglobin 10.1 GM/DL (12.0-16.0); Immature Granulocytes % 1.1 %; Immature Granulocytes Absolute 0.12 #; Lymphocytes # 1.4 10*3/uL (1.4-4.0); Lymphocytes % 13.3 % (21.3-54.2); Mean Corpuscular HGB Conc 32.3 GM/DL (32-36); Mean Corpuscular Hemoglobin 27 PG (27-34); Mean Corpuscular Volume 82.4 FL (87-102); Mean Platelet Volume 10.8 FL (9.6-12.0); Monocytes # 0.9 10*3/uL (0.11-0.8); Monocytes % 8.7 % (1.7-12.7); Neutrophils # 8.3 10*3/uL (1.4-7.4); Neutrophils % 76.1 % (38.7-73.9); Platelet Count 369 T/CUMM (130-400); White Blood Count 10.9 T/CUMM (4-12)
[2018-08-19 06:15] LABS: Albumin 2.3 G/DL (3.4-5.0); Bilirubin,Total 1.2 MG/DL (0.2-1.0); Calcium 8.6 MG/DL (8.5-10.1); Osmolality,Calculated 272.5 MOS/KG (273-304); Potassium 3.4 MMOL/L (3.5-5.1)
[2018-08-19] MEDS: PIPERACILLIN/TAZOBACTAM 3,375 MG in SODIUM CHLORIDE 0.9% 100 ML IV SCH ×3 (06:25→21:07)
[2018-08-19] MEDS: INSULIN REGULAR 100 UNIT/ML SUBCUT SCH ×3 (06:25→18:31)
[2018-08-19 07:32] LABS: Hypochromasia 1+
[2018-08-19 07:33] LABS: Microcytosis 1+; Platelet Estimate Normal
[2018-08-19] MEDS: POLYETHYLENE GLYCOL POWDER 17 GM PACK PO SCH (09:10)
[2018-08-19] MEDS: CARVEDILOL 12.5 MG TABLET PO SCH ×2 (09:17→16:04)
[2018-08-19] MEDS: PANTOPRAZOLE 40 MG TABLET PO SCH (09:17)
[2018-08-19] MEDS: APIXABAN 5 MG TABLET PO SCH ×2 (09:17→21:06)
[2018-08-19] MEDS: hydrALAZINE 25 MG TABLET PO SCH ×3 (09:18→21:06)
[2018-08-19] MEDS: NYSTATIN POWDER 15 GM BOTTLE TOP SCH ×3 (09:21→21:07)
[2018-08-20] MEDS: INSULIN REGULAR 100 UNIT/ML SUBCUT SCH ×4 (01:08→18:27)
[2018-08-20] MEDS: HYDROmorphone 2 MG/1 ML VIAL IV PRN ×3 (04:56→20:57)
[2018-08-20 05:02] LABS: Basophils % 0.3 % (0.0-0.8); Eosinophils # 0.1 10*3/uL (0.0-0.87); Eosinophils % 0.8 % (0.00-10.9); Hematocrit 31.3 VOL% (35.7-47.0); Hemoglobin 10.1 GM/DL (12.0-16.0); Immature Granulocytes % 0.9 %; Immature Granulocytes Absolute 0.08 #; Lymphocytes # 1.4 10*3/uL (1.4-4.0); Lymphocytes % 16.6 % (21.3-54.2); Mean Corpuscular HGB Conc 32.3 GM/DL (32-36); Mean Corpuscular Hemoglobin 27 PG (27-34); Mean Corpuscular Volume 82.8 FL (87-102); Mean Platelet Volume 10.4 FL (9.6-12.0); Monocytes # 0.8 10*3/uL (0.11-0.8); Monocytes % 9.2 % (1.7-12.7); Neutrophils # 6.2 10*3/uL (1.4-7.4); Neutrophils % 72.2 % (38.7-73.9); Platelet Count 391 T/CUMM (130-400); Red Blood Count 3.78 MC/CUMM (3.8-5.5); Red Cell Distribution Width 13.9 % (9.3-17.3); White Blood Count 8.7 T/CUMM (4-12)
[2018-08-20] MEDS: PIPERACILLIN/TAZOBACTAM 3,375 MG in SODIUM CHLORIDE 0.9% 100 ML IV SCH ×3 (05:02→21:05)
[2018-08-20 05:21] LABS: Calcium 8.8 MG/DL (8.5-10.1); Osmolality,Calculated 276.3 MOS/KG (273-304); Potassium 3.3 MMOL/L (3.5-5.1)
[2018-08-20 05:26] LABS: Albumin 2.5 G/DL (3.4-5.0); Bilirubin,Direct 0.26 MG/DL (0.0-0.20); Bilirubin,Indirect 0.7 MG/DL (0.0-1.0); Total Protein 7.4 G/DL (6.4-8.3)
[2018-08-20 05:48] LABS: Anisocytosis Slight; Band Neutrophils 1 % (0-10); Eosinophils 1 % (0-10); Hypochromasia Slight; Lymphocytes 14 % (20-55); Platelet Estimate Normal; Segmented Neutrophils 75 % (50-85); Total Cells Counted 100
[2018-08-20 05:49] LABS: Macrocytosis Slight
[2018-08-20] MEDS: APIXABAN 5 MG TABLET PO SCH ×2 (09:13→20:55)
[2018-08-20] MEDS: PANTOPRAZOLE 40 MG TABLET PO SCH (09:13)
[2018-08-20] MEDS: hydrALAZINE 25 MG TABLET PO SCH ×3 (09:13→20:56)
[2018-08-20] MEDS: CARVEDILOL 12.5 MG TABLET PO SCH ×2 (09:13→16:04)
[2018-08-20] MEDS: POLYETHYLENE GLYCOL POWDER 17 GM PACK PO SCH (09:13)
[2018-08-20] MEDS: NYSTATIN POWDER 15 GM BOTTLE TOP SCH ×3 (09:14→20:56)
[2018-08-21] MEDS: INSULIN REGULAR 100 UNIT/ML SUBCUT SCH ×3 (00:17→11:48)
[2018-08-21] MEDS: HYDROmorphone 2 MG/1 ML VIAL IV PRN (04:04)
[2018-08-21 04:37] LABS: Basophils % 0.4 % (0.0-0.8); Eosinophils # 0.1 10*3/uL (0.0-0.87); Eosinophils % 0.9 % (0.00-10.9); Hematocrit 32.2 VOL% (35.7-47.0); Hemoglobin 10.2 GM/DL (12.0-16.0); Immature Granulocytes % 0.7 %; Immature Granulocytes Absolute 0.05 #; Lymphocytes # 1.4 10*3/uL (1.4-4.0); Lymphocytes % 19.7 % (21.3-54.2); Mean Corpuscular HGB Conc 31.7 GM/DL (32-36); Mean Corpuscular Hemoglobin 26 PG (27-34); Mean Corpuscular Volume 82.1 FL (87-102); Mean Platelet Volume 10.2 FL (9.6-12.0); Monocytes # 0.6 10*3/uL (0.11-0.8); Neutrophils # 4.8 10*3/uL (1.4-7.4); Neutrophils % 69.3 % (38.7-73.9); Platelet Count 482 T/CUMM (130-400); Red Blood Count 3.92 MC/CUMM (3.8-5.5)
[2018-08-21 04:58] LABS: Albumin 2.5 G/DL (3.4-5.0); Bilirubin,Total 1.1 MG/DL (0.2-1.0); Calcium 8.8 MG/DL (8.5-10.1); Osmolality,Calculated 277.3 MOS/KG (273-304); Potassium 3.4 MMOL/L (3.5-5.1); Total Protein 7.9 G/DL (6.4-8.3)
[2018-08-21 05:02] LABS: Hypochromasia 1+; Microcytosis Slight; Ovalocytes Slight; Platelet Estimate Adequate
[2018-08-21] MEDS: POTASSIUM CHLORIDE RIDER 10 MEQ in PREMIX 1 EACH IV PRN ×2 (05:40→08:21)
[2018-08-21] MEDS: CARVEDILOL 12.5 MG TABLET PO SCH (08:16)
[2018-08-21] MEDS: PIPERACILLIN/TAZOBACTAM 3,375 MG in SODIUM CHLORIDE 0.9% 100 ML IV SCH ×2 (08:17→15:19)
[2018-08-21] MEDS: hydrALAZINE 25 MG TABLET PO SCH ×2 (08:17→14:27)
[2018-08-21] MEDS: APIXABAN 5 MG TABLET PO SCH (08:17)
[2018-08-21] MEDS: NYSTATIN POWDER 15 GM BOTTLE TOP SCH ×3 (08:18→14:28)
[2018-08-21] MEDS: PANTOPRAZOLE 40 MG TABLET PO SCH (08:18)
[2018-08-21] MEDS: POLYETHYLENE GLYCOL POWDER 17 GM PACK PO SCH (08:19)
[2018-08-21 11:54] VITALS: BP 126/71
[2018-08-23] MEDS ORDERED: APIXABAN 5 MG TABLET PO SCH (09:00)
== END 2018-08-21 16:25 | disposition home or self-care (01) | DRG 417 ==
LOC: N.ED 23:03 → SUATTDRO 08-06 05:33 → N.EDINP 08-06 05:33 → SUATTDRO 08-06 05:34 → N.3E 08-06 06:05 → N.ICU 08-10 08:53 → N.3E 08-11 10:45
PROVIDERS: ADMIT Emergency Medicine; ATTEND Internal Medicine
PROC: LAPCHOL (2018-08-08 07:50)